=== PATIENT | female | born 2000 | race Caucasian/White ===

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

== ENCOUNTER 2021-01-25 08:09 | Emergency (ER) | payer OTHER ==
[2021-01-25 08:15] VITALS: TEMP 97.6
[2021-01-25] MEDS ORDERED: SODIUM CHLORIDE 0.9% 500 ML 500 ML IV STA (08:19)
[2021-01-25] MEDS ORDERED: MORPHINE SULFATE 4 MG/ML SYRINGE IVP STA (08:19)
[2021-01-25 08:56] LABS: ALT 17 U/L (4-34); African American GFR (CKD) >90 (>60 ml/min/1.73 sqM); Albumin 4.1 g/dL (3.5-5.0); Anion Gap 14 mmol/L; Blood Urea Nitrogen 4 mg/dL (7-17); Calcium 9.7 mg/dL (8.4-10.2); Carbon Dioxide 13 mmol/L (22-30); Chloride 110 mmol/L (98-107); Glucose 147 mg/dL (74-99); Non-African American GFR(CKD) >90 (>60 ml/min/1.73 sqM); Sodium 137 mmol/L (137-145); Total Bilirubin 0.9 mg/dL (0.2-1.3)
[2021-01-25 09:05] LABS: Basophils # (A) 0.1 k/uL (0-0.2); Basophils % (A) 1 %; Eosinophils # (A) 0.2 k/uL (0-0.7); Eosinophils % (A) 2 %; HCT 41.6 % (34.0-46.0); HGB 14.3 gm/dL (11.4-16.0); Lymphocytes # (A) 2.2 k/uL (1.0-4.8); Lymphocytes % (A) 17 %; MCHC 34.4 g/dL (31.0-37.0); MCV 90.3 fL (80.0-100.0); Mean Platelet Volume 7.9; Monocytes # (A) 0.7 k/uL (0-1.0); Monocytes % (A) 6 %; Neutrophils # (A) 9.5 k/uL (1.3-7.7); Neutrophils % (A) 73 %; Platelet Count 347 k/uL (150-450); RDW 13.4 % (11.5-15.5)
--- NOTE | 2021-01-25 09:06 | ED ---
Female Urogenital HPI - General Chief complaint: Vaginal Bleeding Stated complaint: 12wks preg/vaginal bleeding Time Seen by Provider: 01/25/21 08:13 Source: patient, RN notes reviewed Mode of arrival: ambulatory Limitations: no limitations - History of Present Illness Initial comments: Patient is a 20-year-old female presenting to the emergency department via EMS with complaints of lower abdominal pain and vaginal bleeding that started last night. Patient states she is currently about 11-12 weeks , this is her first . She has not seen an MEDICAL REGISTRAR yet. She is also see them in a couple weeks. Patient states last night she started having lower abdominal pain and cramping and then woke up this morning to a large amount of vaginal bleeding. She is passing blood clots as well. Patient has been nauseous, no vomiting. Patient received 4 mg of Zofran and small amount of fluids in the EMS prior to arrival. She denies any chest pain or shortness of breath, no recent fevers or chills. She has no further complaints. Patient's vital signs are stable upon arrival. - Related Data Home Medications Medication Instructions Recorded Confirmed Acetaminophen Tab [Tylenol Tab] 1,000 mg PO Q6HR PRN 01/25/21 01/25/21 Allergies Allergy/AdvReac Type Severity Reaction Status Date / Time No Known Allergies Allergy Verified 01/25/21 09:26 Review of Systems ROS Statement: Those systems with pertinent positive or pertinent negative responses have been documented in the HPI. ROS Other: All systems not noted in ROS Statement are negative. Past Medical History Past Medical History: No Reported History, GERD/Reflux History of Any Multi-Drug Resistant Organisms: None Reported Past Surgical History: Adenoidectomy Past Anesthesia/Blood Transfusion Reactions: No Reported Reaction Past Psychological History: Anxiety Smoking Status: Never smoker Past Alcohol Use History: None Reported Past Drug Use History: None Reported - Past Family History Mother Family Medical History: Cancer, Diabetes Mellitus Father Additional Family Medical History / Comment(s): Biological father is bipolar. General Exam - General Exam Comments Initial Comments: GENERAL: Patient is well-developed and well-nourished. Patient is nontoxic and in moderate distress, screaming, diaphoretic. HEAD: Atraumatic, normocephalic. EYES: Pupils equal round and reactive to light, extraocular movements intact, sclera anicteric, conjunctiva are normal. Eyelids were unremarkable. ENT: Moist mucous membranes. NECK: Normal range of motion, supple without lymphadenopathy or JVD. LUNGS: Unlabored respirations. Breath sounds clear to auscultation bilaterally and equal. No wheezes rales or rhonchi. HEART: Regular rate and rhythm without murmurs, rubs or gallops. ABDOMEN: Soft, tender suprapubic, lower abdominal region, normoactive bowel sounds. No guarding, no rebound. No masses appreciated. MUSCULOSKELETAL: Normal extremities with adequate strength and normal range of motion, no pitting or edema. No clubbing or cyanosis. NEUROLOGICAL: Patient is alert and oriented x 3. SKIN: Warm, Dry, normal turgor, no rashes or lesions noted. Limitations: no limitations External exam: Present: normal external exam Speculum exam: Present: vaginal bleeding (moderate amount, small clots) Course Vital Signs 01/25/21 01/25/21 08:10 10:41 Temperature 97.6 F Pulse Rate 85 105 H Respiratory 22 20 Rate Blood Pressure 125/78 115/74 O2 Sat by Pulse 100 100 Oximetry Medical Decision Making - Medical Decision Making Patient is a 20-year-old female presenting via EMS for abdominal cramping and vaginal bleeding that started some last night. Her vital signs are stable. She thinks she is about 11-12 weeks , first . She is scheduled to see Dr. Brooke this week. Lab work is stable at this time including a hemoglobin of 14, hCG Quant is 2184. Ultrasound reveals a single intrauterine with gestational age of approximately 8 weeks and 5 days, there is some abnormal inferior extension into the lower uterine segment. There is no heartbeat detected. Findings are concerning for failure. Patient was given pain control here. She continues to have contractions and intermittent vaginal bleeding. I did consult with Dr. Lafleur who is covering for Dr. Brooke. She recommended repeating her hemoglobin and is on his vital signs remained stable, she is comfortable patient going home and to follow-up in the office tomorrow. Patient's repeat hemoglobin is at 12, her vital signs remained stable, her pain is controlled. I recommended alternating between Tylenol and ibuprofen for pain relief. The patient and patient's mother is agreeable to this plan of care. They will follow up with Dr. Brooke tomorrow. Return parameters were discussed with her and she verbalized understanding. Case discussed with Dr. Watts. - Lab Data Result diagrams: 01/25/21 10:42 01/25/21 08:36 Lab Results 01/25/21 01/25/21 01/25/21 Range/Units 08:30 08:36 08:36 WBC 13.0 H (4.0-11.0) k/uL RBC 4.60 (3.80-5.40) m/uL Hgb 14.3 (11.4-16.0) gm/dL Hct 41.6 (34.0-46.0) % MCV 90.3 (80.0-100.0) fL MCH 31.0 (25.0-35.0) pg MCHC 34.4 (31.0-37.0) g/dL RDW 13.4 (11.5-15.5) % Plt Count 347 (150-450) k/uL MPV 7.9 Neutrophils % 73 % Lymphocytes % 17 % Monocytes % 6 % Eosinophils % 2 % Basophils % 1 % Neutrophils # 9.5 H (1.3-7.7) k/uL Lymphocytes # 2.2 (1.0-4.8) k/uL Monocytes # 0.7 (0-1.0) k/uL Eosinophils # 0.2 (0-0.7) k/uL Basophils # 0.1 (0-0.2) k/uL PT (9.0-12.0) sec INR (<1.2) APTT (22.0-30.0) sec Sodium 137 (137-145) mmol/L Potassium 3.7 (3.5-5.1) mmol/L Chloride 110 H (98-107) mmol/L Carbon Dioxide 13 L (22-30) mmol/L Anion Gap 14 mmol/L BUN 4 L (7-17) mg/dL Creatinine 0.47 L (0.52-1.04) mg/dL Est GFR (CKD-EPI)AfAm >90 (>60 ml/min/1.73 sqM) Est GFR (CKD-EPI)NonAf >90 (>60 ml/min/1.73 sqM) Glucose 147 H (74-99) mg/dL Calcium 9.7 (8.4-10.2) mg/dL Total Bilirubin 0.9 (0.2-1.3) mg/dL AST 24 (14-36) U/L ALT 17 (4-34) U/L Alkaline Phosphatase 52 (38-126) U/L Total Protein 7.0 (6.3-8.2) g/dL Albumin 4.1 (3.5-5.0) g/dL HCG, Quant 2184.9 mIU/mL Blood Type Blood Type Confirm A Positive Blood Type Recheck Bld Type Recheck Status Antibody Screen Spec Expiration Date 01/25/21 01/25/21 01/25/21 Range/Units 08:36 09:21 10:42 WBC 17.8 H (4.0-11.0) k/uL RBC 4.03 (3.80-5.40) m/uL Hgb 12.6 (11.4-16.0) gm/dL Hct 37.5 (34.0-46.0) % MCV 93.2 (80.0-100.0) fL MCH 31.2 (25.0-35.0) pg MCHC 33.5 (31.0-37.0) g/dL RDW 13.0 (11.5-15.5) % Plt Count 267 (150-450) k/uL MPV 9.0 Neutrophils % 91 % Lymphocytes % 4 % Monocytes % 3 % Eosinophils % 1 % Basophils % 0 % Neutrophils # 16.1 H (1.3-7.7) k/uL Lymphocytes # 0.8 L (1.0-4.8) k/uL Monocytes # 0.6 (0-1.0) k/uL Eosinophils # 0.1 (0-0.7) k/uL Basophils # 0.1 (0-0.2) k/uL PT 10.0 (9.0-12.0) sec INR 0.9 (<1.2) APTT 18.2 L (22.0-30.0) sec Sodium (137-145) mmol/L Potassium (3.5-5.1) mmol/L Chloride (98-107) mmol/L Carbon Dioxide (22-30) mmol/L Anion Gap mmol/L BUN (7-17) mg/dL Creatinine (0.52-1.04) mg/dL Est GFR (CKD-EPI)AfAm (>60 ml/min/1.73 sqM) Est GFR (CKD-EPI)NonAf (>60 ml/min/1.73 sqM) Glucose (74-99) mg/dL Calcium (8.4-10.2) mg/dL Total Bilirubin (0.2-1.3) mg/dL AST (14-36) U/L ALT (4-34) U/L Alkaline Phosphatase (38-126) U/L Total Protein (6.3-8.2) g/dL Albumin (3.5-5.0) g/dL HCG, Quant mIU/mL Blood Type A Positive Blood Type Confirm Blood Type Recheck No Previous Record Bld Type Recheck Status CABO Indicated Antibody Screen NEGATIVE Spec Expiration Date 01/28/20212335 Disposition Clinical Impression: Incomplete miscarriage, Vaginal bleeding Disposition: HOME SELF-CARE Condition: Stable Instructions (If sedation given, give patient instructions): Threatened Miscarriage (ED) Additional Instructions: Please return to the Emergency Department if symptoms worsen or any other concerns. Alternate between Tylenol and ibuprofen for pain control. Please follow-up with the MEDICAL REGISTRAR office tomorrow as discussed. Is patient prescribed a controlled substance at d/c from ED?: No Referrals: Francisco Javier Abdullahi DO [Primary Care Provider] - 1-2 days Rain Brooke DO [Doctor of Osteopathic Medicine] - 1-2 days Time of Disposition: 11:47
[2021-01-25 09:12] LABS: AST 24 U/L (14-36); Alkaline Phosphatase 52 U/L (38-126); HCG,Quantitative Serum 2184.9 mIU/mL; Potassium 3.7 mmol/L (3.5-5.1)
--- NOTE | 2021-01-25 09:26 | US ---
EXAMINATION TYPE: Transabdominal DATE OF EXAM: 01/25/2021 8:49 AM COMPARISON: NONE CLINICAL HISTORY: severe abd pain/bleeding, 11-12 wks. Deric with heavy bleeding that started t his am, G1, h/o PCOS EXAM PERFORMED: OBTA EXAM MEASUREMENTS: GESTATIONAL AGE / DATING Physician Established: Not yet established Dates by LMP: (13 weeks/0 days) EDC: 08/02/2021 Dates by First Scan: No previous this is first scan Dates by Current Scan for: (8 weeks/5 days) MATERNAL ANATOMY Uterus: 12.2 x 5.2 x 6.4cm Right Ovary: 2.0 x 2.0 x 2.1cm Left Ovary: 2.6 x 1.6 x 2.3cm Post CDS / Adnexa: wnl Presence of free fluid: no Presence of corpus luteal cyst: not seen GESTATION / SURVEY CRL: 2.0cm (8 weeks/5 days) MSD: Difficult to measure mean sac diameter which appears to extend distally into the lower uterine s egment and upper cervix. Yolk Sac (normal less than 6mm): not seen Heart Rate: Heart rate detected Date of LMP: 10/26/2020 Beta HcG (if available): not available IMPRESSION: Single intrauterine with a crown-rump length of 20 millimeters corresponding to gestational age of 8 weeks 5 days, apparent abnormal inferior extension/continuation of the gestational sac into the lower uterine segment and upper cervix with no heartbeat detected. Findings are concerning for p regnancy failure and should be correlated clinically with beta hCG levels.
[2021-01-25 09:45] LABS: INR 0.9 (<1.2)
[2021-01-25 09:50] LABS: Partial Thromboplastin Time 18.2 sec (22.0-30.0)
[2021-01-25] MEDS ORDERED: MORPHINE SULFATE 2 MG/ML SYRINGE IVP ONE (10:02)
[2021-01-25 10:53] LABS: Basophils # (A) 0.1 k/uL (0-0.2); Basophils % (A) 0 %; Eosinophils # (A) 0.1 k/uL (0-0.7); Eosinophils % (A) 1 %; HCT 37.5 % (34.0-46.0); HGB 12.6 gm/dL (11.4-16.0); Lymphocytes # (A) 0.8 k/uL (1.0-4.8); Lymphocytes % (A) 4 %; MCH 31.2 pg (25.0-35.0); MCHC 33.5 g/dL (31.0-37.0); MCV 93.2 fL (80.0-100.0); Monocytes # (A) 0.6 k/uL (0-1.0); Monocytes % (A) 3 %; Neutrophils # (A) 16.1 k/uL (1.3-7.7); Neutrophils % (A) 91 %; Platelet Count 267 k/uL (150-450); RBC 4.03 m/uL (3.80-5.40); WBC 17.8 k/uL (4.0-11.0)
[2021-01-25 12:02] VITALS: BP 132/62; PULSE 93; RESP 18
== END 2021-01-25 12:00 | disposition home or self-care (01) ==
LOC: EC 08:09
DX: O26.891 Other specified pregnancy related conditions, first trimester (principal); O03.4 Incomplete spontaneous abortion without complication; K21.9 Gastro-esophageal reflux disease without esophagitis; F41.9 Anxiety disorder, unspecified; Z90.89 Acquired absence of other organs; Z3A.12 12 weeks gestation of pregnancy
CPT/HCPCS: 99284; 96374; 96376; 96361; 36415; 86900; 86901; 80053; 85025; 85610; 85730; 86850; 84702; 76801; J2270 ×2